=== PATIENT | male | born 1935 | race Caucasian/White ===

== ENCOUNTER 2016-03-29 07:01 | Observation (INO) | payer OTHER, MEDICARE ==
[2016-03-29] VITALS (10 sets, daily range): BP systolic 130–182; BP diastolic 68–168
[~2016-03-29] VITALS: Ht 176.5 cm; Wt 93.6 kg
[~2016-03-29 07:01] MED LIST: ACETAMINOPHEN325 M3 PO; ADULT LOW DOSE81 M1 PO; ASPIR 8181 M1 PO; ASPIRIN81 M1 PO; AVAPRO75 MG PO; Aspirin E.C. PO; Aspirin PO; CALCIUM 600 +1 EAC3 PO; CALCIUM 600 +1 EAC4 PO; CELEXA20 MG PO; CILOSTAZOL100 MG PO; CITALOPRAM HBR PO; CITALOPRAM HBR20 MG PO; CLOPIDOGREL75 MG PO; CYANOCOBAL1000 MCG/2 IM; Cilostazol PO; Cipro PO; Colace PO; DOCUSATE SODIU100 MG PO; DOXYCYCLINE HY100 M3 PO; FISH OIL 1,0001 EAC7 PO; FISH OIL CONC1 EACH PO; FLEXERIL10 MG PO; FLUZONE HI180 MCG/07 IM; FUROSEMIDE20 MG PO; GLIPIZIDE10 M1 PO; GLIPIZIDE10 MG PO; Glucotrol PO; HEPARIN SO5000 UNITS SC; HUMALOG KW200 UNIT/1 SC; HYCODAN SYRUP480 ML PO; HYDROCODON-ACE1 EAC7 PO; IBUPROFEN800 MG PO; LEVAQUIN750 MG PO; LEVEMIR FL100 UNIT/1 SC; LEVEMIR FL100 UNITS/ PO; LEVEMIR FL100 UNITS/ SC; LIPITOR40 MG PO; LIPITOR80 MG PO; LOVASTATIN40 MG PO; Lipitor PO; Lovenox SC; METFORMIN HCL500 MG PO; METOPROLOL SUC100 MG PO; METRONIDAZOLE45 GM TP; MICRO-K10 ME2 PO; MULTI-DAY VITA1 EACH PO; MULTIVITAMIN1 EAC2 PO; NOVOLOG 10100 UNITS/ SC; NOVOLOG MI100 UNIT/4 SC; NOVOLOG MI100 UNIT/M SC; NOVOLOG PE100 UNITS/ SC; NovoLOG, HumaLOG SC; OMEGA-3 1,0001 EACH PO; Omega III EPA + DHA PO; Oscal 500 w/Vitamin PO; PANTOPRAZOLE SO40 MG PO; PIOGLITAZONE HC15 MG PO; PLAVIX75 MG PO; Percocet 5/325,Endoc PO; Pletal PO; ROSADAN45 G1; ROSADAN45 G1 TP; ROSADAN45 GM TP; TOPROL XL100 MG PO; TRETINOIN 0.05%60 GM TP; TRETINOIN TP; TRETINOIN20 G1 TP; TYLENOL REGULA325 MG PO; TYLENOL WITH C1 EACH PO; Vicodin,Norco 5/325 PO; XARELTO20 MG PO; celeXA PO
[2016-03-29 07:39] LABS: HEMATOCRIT 34.5 % (38.0-50.0); MCH 22.8 PG (29.0-34.0); MCHC 30.7 G/DL (30.0-36.0); MCV 74.2 FL (86-99); MEAN PLAT.VOLUME 9.1 uM^3 (9.0-12.4); PLATELET COUNT 269 K/uL (156-360); RBC DIS.WIDTH-CV 16.3 % (11.8-14.6); RBC DIS.WIDTH-SD 42.7 % (39-53); RED BLOOD COUNT 4.65 M/uL (4.00-5.50); WHITE BLOOD COUNT 5.7 K/uL (4.1-10.2)
[2016-03-29 07:51] LABS: PROTHROMBIN TIME 10.5 (9.2-11.2); PTT 26.8 (25-32)
[2016-03-29 07:52] LABS: BASOPHIL COUNT 0.1 K/uL (0-0.1); EOSINOPHIL (%) 5.6 % (0-5); EOSINOPHIL COUNT 0.3 K/uL (0-0.3); IMMATURE GRANULOCYTE (%) 0.4 % (0.0-0.7); IMMATURE GRANULOCYTE COUNT 0.2 K/uL; LYMPHOCYTE COUNT 1.5 K/uL (1.0-2.8); MONOCYTE (%) 8.1 % (3-12); MONOCYTE COUNT 0.5 K/uL (0-0.8); NEUTROPHIL (%) 58.7 % (45-76); NEUTROPHIL COUNT 3.4 K/uL (1.8-6.4)
[2016-03-29 08:06] LABS: ANION GAP 7 MEQ/L (2-14); CHLORIDE 104 MEQ/L (99-109); GFR ESTIMATE (CALCULATED) 52 mL/min/; GLUCOSE 265 mg/dL (70-99); POTASSIUM 4.6 MEQ/L (3.7-5.4); SAMPLE HEMOLYSIS CHECK 0; SAMPLE ICTERIC CHECK 0; SAMPLE LIPEMIA CHECK 0; SODIUM 137 MEQ/L (136-147); UREA NITROGEN (BUN) 21 mg/dL (9-23)
[2016-03-29 08:09] LABS: TROP-I INTERPRETATION NEGATIVE; TROPONIN-I 0.02 ng/mL (0.0-0.30)
[2016-03-29] MEDS ORDERED: HUMALOG KW200 UNIT/1 SC ×3 (09:04→09:05)
[2016-03-29 12:08] LABS: POINT-OF-CARE METER ID UU13113831
[2016-03-29 14:33] LABS: TROP-I INTERPRETATION NEGATIVE; TROPONIN-I < 0.01 ng/mL (0.0-0.30)
[2016-03-29 18:32] LABS: TROP-I INTERPRETATION NEGATIVE; TROPONIN-I 0.02 ng/mL (0.0-0.30)
[2016-03-30 01:19] LABS: TROP-I INTERPRETATION NEGATIVE; TROPONIN-I 0.02 ng/mL (0.0-0.30)
[2016-03-30 02:00] LABS: POINT-OF-CARE METER ID UU13113831
[2016-03-30 08:00] VITALS: BP 142/78
[2016-03-30 08:39] LABS: POINT-OF-CARE METER ID UU13113831
== END 2016-03-30 10:53 | disposition home or self-care (01) ==
LOC: EME 07:01 → EDOF 08:58 → 5WEST 08:58
PROVIDERS: Emergency Medicine; Hospitalist; Internal Medicine
DX: R07.9 Chest pain, unspecified (principal); R94.31 Abnormal electrocardiogram [ECG] [EKG]; E11.22 Type 2 diabetes mellitus with diabetic chronic kidney disease; I12.9 Hypertensive chronic kidney disease with stage 1 through stage 4 chronic kidney disease, or unspecified chronic kidney disease; N18.3 Chronic kidney disease, stage 3 (moderate); Z79.4 Long term (current) use of insulin; I25.10 Atherosclerotic heart disease of native coronary artery without angina pectoris; Z95.1 Presence of aortocoronary bypass graft; Z86.73 Personal history of transient ischemic attack (TIA), and cerebral infarction without residual deficits; Z79.82 Long term (current) use of aspirin; Z86.718 Personal history of other venous thrombosis and embolism; Z85.038 Personal history of other malignant neoplasm of large intestine; Z87.891 Personal history of nicotine dependence; Z82.49 Family history of ischemic heart disease and other diseases of the circulatory system; Z80.0 Family history of malignant neoplasm of digestive organs
CPT/HCPCS: 71010; 80048; 82948; 84484; 85025; 85610; 85730; 93005; 99281; 99285; G0378; J1650; J1815; J2270; J7030

== ENCOUNTER 2017-01-19 07:38 | Observation (INO) | payer OTHER, MEDICARE ==
[~2017-01-19] VITALS: Ht 180.3 cm; Wt 107.2 kg
[2017-01-19 08:38] LABS: BASOPHIL COUNT 0.1 K/uL (0-0.1); EOSINOPHIL (%) 5.9 % (0-5); EOSINOPHIL COUNT 0.4 K/uL (0-0.3); HEMATOCRIT 43.1 % (38.0-50.0); IMMATURE GRANULOCYTE (%) 0.6 % (0.0-0.7); INSTRUMENT ABS NEUTROPHIL CT 3.9 K/uL; LYMPHOCYTE COUNT 1.4 K/uL (1.0-2.8); MCH 30.8 PG (29.0-34.0); MCHC 33.6 G/DL (30.0-36.0); MCV 91.5 FL (86-99); MEAN PLAT.VOLUME 9.5 uM^3 (9.0-12.4); MONOCYTE (%) 9.8 % (3-12); MONOCYTE COUNT 0.6 K/uL (0-0.8); NEUTROPHIL (%) 61.5 % (45-76); NEUTROPHIL COUNT 3.9 K/uL (1.8-6.4); PLATELET COUNT 192 K/uL (156-360); RBC DIS.WIDTH-CV 13.2 % (11.8-14.6); RBC DIS.WIDTH-SD 44.2 % (39-53); RED BLOOD COUNT 4.71 M/uL (4.00-5.50); WHITE BLOOD COUNT 6.3 K/uL (4.1-10.2)
[2017-01-19 08:52] LABS: CHLORIDE 107 mEq/L (99-109); POTASSIUM 4.5 mEq/L (3.7-5.4); SODIUM 141 mEq/L (136-147)
[2017-01-19 08:54] LABS: GLUCOSE 229 mg/dL (70-99)
[2017-01-19 08:55] LABS: ANION GAP 8 MEQ/L (2-14)
[2017-01-19 08:58] LABS: GFR ESTIMATE (CALCULATED) 56 mL/min/
[2017-01-19 08:59] LABS: UREA NITROGEN (BUN) 15 mg/dL (9-23)
[2017-01-19 09:00] LABS: TROP-I INTERPRETATION NEGATIVE; TROPONIN-I < 0.01 ng/mL (0.0-0.30)
[2017-01-19] MEDS ORDERED: LEVEMIR FL100 UNIT/1 SC ×2 (11:16)
[2017-01-19] MEDS ORDERED: HUMALOG KW200 UNIT/1 SC ×2 (11:18)
[2017-01-19] MEDS ORDERED: CITALOPRAM HBR20 MG PO (11:19)
[2017-01-19] MEDS ORDERED: VITAMIN C1000 MG PO (11:20)
[2017-01-19] MEDS ORDERED: FEOSOL325 MG PO (11:20)
[2017-01-19] MEDS ORDERED: TYLENOL EXTRA500 MG PO (11:21)
[2017-01-19 12:24] LABS: TROP-I INTERPRETATION NEGATIVE; TROPONIN-I < 0.01 ng/mL (0.0-0.30)
[2017-01-19 12:50] VITALS: BP 118/53
[2017-01-19 16:17] VITALS: BP 146/79
[2017-01-19 17:41] LABS: TROP-I INTERPRETATION NEGATIVE; TROPONIN-I 0.01 ng/mL (0.0-0.30)
[2017-01-19 18:57] LABS: POINT-OF-CARE METER ID UU14162513
[2017-01-19 19:40] VITALS: BP 148/82
[2017-01-19 21:59] LABS: POINT-OF-CARE METER ID UU14162513
[2017-01-19 23:53] VITALS: BP 118/57
[2017-01-20 03:32] VITALS: BP 119/55
[2017-01-20 07:02] VITALS: BP 158/83
[2017-01-20 07:25] LABS: ADD MIUA? YES; BILIRUBIN NEGATIVE; BLOOD MODERATE; COLOR YELLOW ((YELLOW)); GLUCOSE (STRIP) 50; KETONES NEGATIVE; LEUKOCYTES NEGATIVE; NITRITE NEGATIVE; PROTEIN (STRIP) NEGATIVE; SPECIFIC GRAVITY 1.024 (1.000-1.030); UROBILINOGEN 0.2 MG/DL (0.2-1.0)
[2017-01-20 07:32] LABS: BACTERIA NONE SEEN /HPF; EPITHELIAL CELLS RARE /HPF; MUCUS TRACE /LPF; RED BLOOD CELLS 20-30 /HPF (0-5); WHITE BLOOD CELLS 0-5 /HPF (0-5)
[2017-01-20 08:56] LABS: POINT-OF-CARE METER ID UU14162513
[2017-01-20 11:53] VITALS: BP 189/86
[2017-01-20 12:36] LABS: ANION GAP 5 MEQ/L (2-14); CHLORIDE 102 MEQ/L (99-109); POTASSIUM 4.5 MEQ/L (3.7-5.4); SAMPLE HEMOLYSIS CHECK 0; SAMPLE ICTERIC CHECK 0; SAMPLE LIPEMIA CHECK 0; SODIUM 136 MEQ/L (136-147); TOTAL BILIRUBIN 0.8 MG/DL (0.0-1.0)
[2017-01-20 12:41] LABS: ALKALINE PHOSPHATASE 75 IU/L (3-129); GFR ESTIMATE (CALCULATED) > 59 mL/min/ (58.99-99999); GLUCOSE 181 mg/dL (70-99); LIPASE 29 U/L (1.0-51.0); UREA NITROGEN (BUN) 17 mg/dL (9-23)
[2017-01-20 13:16] LABS: POINT-OF-CARE METER ID UU14162513
== END 2017-01-20 17:57 | disposition home or self-care (01) ==
LOC: EME 07:38 → 5WEST 10:47 → EDOF 10:47 → ENRESERV 10:49 → 5WEST 13:17
PROVIDERS: Hospitalist; Nurse Practitioner Adult Health; Physician Assistant Medical
DX: R07.89 Other chest pain (principal); I25.10 Atherosclerotic heart disease of native coronary artery without angina pectoris; Z95.1 Presence of aortocoronary bypass graft; E11.9 Type 2 diabetes mellitus without complications; Z79.4 Long term (current) use of insulin; I10 Essential (primary) hypertension; E78.5 Hyperlipidemia, unspecified; Z86.73 Personal history of transient ischemic attack (TIA), and cerebral infarction without residual deficits; Z87.891 Personal history of nicotine dependence; Z79.82 Long term (current) use of aspirin; R59.9 Enlarged lymph nodes, unspecified; I70.1 Atherosclerosis of renal artery; Z87.442 Personal history of urinary calculi; Z90.49 Acquired absence of other specified parts of digestive tract; Z85.038 Personal history of other malignant neoplasm of large intestine
CPT/HCPCS: 71010; 71260; 76770; 80048; 80053; 81003; 82948; 83605; 83690; 84484; 85025; 85651; 87040; 93005; 93975; 99281; 99285; G0378; J1650; J1815; J2270; J2405; J7040

== ENCOUNTER 2017-03-01 21:24 | Observation (INO) | payer OTHER, MEDICARE ==
[~2017-03-01] VITALS: Ht 180.3 cm; Wt 107.7 kg
[~2017-03-01 21:24] MED LIST changes: +ASCORBIC ACID500 M3 PO; +FEOSOL325 MG PO; +TYLENOL EXTRA500 MG PO
[2017-03-01 23:00] LABS: HEMATOCRIT 43.7 % (38.0-50.0); HEMOGLOBIN 15.2 G/DL (12.5-16.6); MCH 31.7 PG (29.0-34.0); MCHC 34.8 G/DL (30.0-36.0); MCV 91.2 FL (86-99); PLATELET COUNT 179 K/uL (156-360); RBC DIS.WIDTH-CV 12.7 % (11.8-14.6); RBC DIS.WIDTH-SD 41.6 % (39-53); RED BLOOD COUNT 4.79 M/uL (4.00-5.50); WHITE BLOOD COUNT 11.5 K/uL (4.1-10.2)
[2017-03-01 23:11] LABS: ALBUMIN 3.9 g/dL (3.2-4.8); CHLORIDE 103 mEq/L (99-109); POTASSIUM 4.1 mEq/L (3.7-5.4); SODIUM 136 mEq/L (136-147)
[2017-03-01 23:13] LABS: GLUCOSE 219 mg/dL (70-99)
[2017-03-01 23:14] LABS: TOTAL PROTEIN 6.6 g/dL (6.4-8.3)
[2017-03-01 23:15] LABS: TOTAL BILIRUBIN 0.7 mg/dL (0.0-1.0)
[2017-03-01 23:17] LABS: ALKALINE PHOSPHATASE 78 IU/L (3-129); CREATININE 1.2 mg/dL (0.6-1.3); GFR ESTIMATE (CALCULATED) > 59 mL/min/ (58.99-99999)
[2017-03-01 23:18] LABS: UREA NITROGEN (BUN) 18 mg/dL (9-23)
[2017-03-01 23:19] LABS: AST (GOT) 20 IU/L (2-34)
[2017-03-01 23:20] LABS: ALT (GPT) 37 IU/L (3-49)
[2017-03-01 23:21] LABS: TROP-I INTERPRETATION NEGATIVE; TROPONIN-I < 0.01 ng/mL (0.0-0.30)
[2017-03-02] VITALS (7 sets, daily range): BP systolic 117–168; BP diastolic 59–87
[2017-03-02 00:14] LABS: APPEARANCE CLEAR ((CLEAR)); BILIRUBIN NEGATIVE; BLOOD NEGATIVE; COLOR YELLOW ((YELLOW)); GLUCOSE (STRIP) 150; KETONES NEGATIVE; LEUKOCYTES NEGATIVE; NITRITE NEGATIVE; PROTEIN (STRIP) 30; SPECIFIC GRAVITY 1.018 (1.000-1.030); UCUL ADDED? NO; UROBILINOGEN 0.2 MG/DL (0.2-1.0)
[2017-03-02] MEDS ORDERED: TOUJEO SOL300 UNIT/1 SC (00:28)
[2017-03-03 03:27] VITALS: BP 170/80
[2017-03-03 07:38] LABS: ALBUMIN 2.7 G/DL (3.2-4.8); ALKALINE PHOSPHATASE 56 IU/L (3-129); ALT (GPT) 22 IU/L (3-49); AST (GOT) 12 IU/L (2-34); CHLORIDE 103 MEQ/L (99-109); GFR ESTIMATE (CALCULATED) > 59 mL/min/ (58.99-99999); GLUCOSE 188 mg/dL (70-99); POTASSIUM 4.3 MEQ/L (3.7-5.4); SODIUM 134 MEQ/L (136-147); TOTAL BILIRUBIN 0.8 MG/DL (0.0-1.0); TOTAL PROTEIN 4.4 G/DL (6.4-8.3); UREA NITROGEN (BUN) 16 mg/dL (9-23)
[2017-03-03 07:39] LABS: MCH 31.1 PG (29.0-34.0); MCHC 33.7 G/DL (30.0-36.0); MCV 92.3 FL (86-99); PLATELET COUNT 128 K/uL (156-360); RBC DIS.WIDTH-CV 12.4 % (11.8-14.6); RBC DIS.WIDTH-SD 42.1 % (39-53); WHITE BLOOD COUNT 6.8 K/uL (4.1-10.2)
[2017-03-03 07:53] LABS: HEMOGLOBIN 11.8 G/DL (12.5-16.6); RED BLOOD COUNT 3.79 M/uL (4.00-5.50)
[2017-03-03 08:26] VITALS: BP 167/95
[2017-03-03 11:39] VITALS: BP 198/101
== END 2017-03-03 12:30 | disposition home or self-care (01) ==
LOC: EME 21:24 → EDOF 03-02 00:41 → 3EAST 03-02 00:41 → EDOF 03-02 00:41 → ENRESERV 03-02 00:42 → 3EAST 03-02 02:56
PROVIDERS: Emergency Medicine; Student in an Organized Health Care Education/Training Program
DX: S06.5X9A Traumatic subdural hemorrhage with loss of consciousness of unspecified duration, initial encounter (principal); W18.30XA Fall on same level, unspecified, initial encounter; W22.8XXA Striking against or struck by other objects, initial encounter; S50.02XA Contusion of left elbow, initial encounter; I69.398 Other sequelae of cerebral infarction; R26.89 Other abnormalities of gait and mobility; I10 Essential (primary) hypertension; E66.9 Obesity, unspecified; E11.9 Type 2 diabetes mellitus without complications; I25.10 Atherosclerotic heart disease of native coronary artery without angina pectoris; Z87.891 Personal history of nicotine dependence; E78.5 Hyperlipidemia, unspecified; Z87.442 Personal history of urinary calculi; Z85.038 Personal history of other malignant neoplasm of large intestine; Z90.49 Acquired absence of other specified parts of digestive tract; Z79.4 Long term (current) use of insulin; Z79.82 Long term (current) use of aspirin
CPT/HCPCS: 70450; 73080; 80053; 81003; 82948; 84484; 85027; 85610; 93005; 99281; 99285; G0378; G8978 GP CJ; G8979 GP CH; G8980 CJ; J1815; J2270; J2405; J7120

== ENCOUNTER 2017-03-08 01:53 | Emergency (ER) | payer OTHER, MEDICARE ==
[~2017-03-08] VITALS: Ht 180.3 cm; Wt 100.7 kg
[~2017-03-08 01:53] MED LIST changes: +TOUJEO SOL300 UNIT/1 SC
[2017-03-08 01:55] VITALS: BP 187/108
[2017-03-08 02:27] LABS: HEMATOCRIT 42.7 % (38.0-50.0); MCHC 35.1 G/DL (30.0-36.0); RBC DIS.WIDTH-CV 12.7 % (11.8-14.6); RBC DIS.WIDTH-SD 41.7 % (39-53); WHITE BLOOD COUNT 9.1 K/uL (4.1-10.2)
[2017-03-08 02:28] LABS: PLATELET COUNT 178 K/uL (156-360); RED BLOOD COUNT 4.69 M/uL (4.00-5.50)
[2017-03-08 02:29] LABS: ALBUMIN 3.9 g/dL (3.2-4.8); CHLORIDE 103 mEq/L (99-109); POTASSIUM 3.7 mEq/L (3.7-5.4); SODIUM 137 mEq/L (136-147)
[2017-03-08 02:31] LABS: GLUCOSE 142 mg/dL (70-99)
[2017-03-08 02:32] LABS: TOTAL PROTEIN 6.7 g/dL (6.4-8.3)
[2017-03-08 02:33] LABS: TOTAL BILIRUBIN 0.7 mg/dL (0.0-1.0)
[2017-03-08 02:35] LABS: ALKALINE PHOSPHATASE 90 IU/L (3-129); CREATININE 1.3 mg/dL (0.6-1.3); GFR ESTIMATE (CALCULATED) 56 mL/min/ (58.99-99999)
[2017-03-08 02:36] LABS: UREA NITROGEN (BUN) 16 mg/dL (9-23)
[2017-03-08 02:37] LABS: AST (GOT) 17 IU/L (2-34)
[2017-03-08 02:38] LABS: ALT (GPT) 36 IU/L (3-49)
[2017-03-09] MEDS ORDERED: REGLAN10 MG PO (16:54)
[2017-03-09] MEDS ORDERED: FIORICET,ESG1 TABLET PO (16:57)
== END 2017-03-08 03:52 | disposition left against medical advice (07) ==
LOC: EME 01:53
DX: R51 Headache (principal); Z53.21 Procedure and treatment not carried out due to patient leaving prior to being seen by health care provider
CPT/HCPCS: 80053; 81003; 85027

== ENCOUNTER 2017-03-09 10:50 | Emergency (ER) | payer OTHER, MEDICARE ==
[~2017-03-09] VITALS: Ht 175.3 cm; Wt 104.5 kg
[2017-03-09 11:33] LABS: BASOPHIL (%) 0.3 % (0-1); EOSINOPHIL (%) 0.3 % (0-5); HEMATOCRIT 44.2 % (38.0-50.0); HEMOGLOBIN 15.2 G/DL (12.5-16.6); IMMATURE GRANULOCYTE (%) 0.3 % (0.0-0.7); LYMPHOCYTE (%) 12.6 % (15-42); LYMPHOCYTE COUNT 1.1 K/uL (1.0-2.8); MCH 31.5 PG (29.0-34.0); MCHC 34.4 G/DL (30.0-36.0); MCV 91.7 FL (86-99); MONOCYTE (%) 6.3 % (3-12); MONOCYTE COUNT 0.5 K/uL (0-0.8); NEUTROPHIL (%) 80.2 % (45-76); NEUTROPHIL COUNT 6.9 K/uL (1.8-6.4); PLATELET COUNT 188 K/uL (156-360); RBC DIS.WIDTH-CV 12.7 % (11.8-14.6); RBC DIS.WIDTH-SD 42.2 % (39-53); RED BLOOD COUNT 4.82 M/uL (4.00-5.50); WHITE BLOOD COUNT 8.6 K/uL (4.1-10.2)
[2017-03-09 11:41] LABS: CHLORIDE 98 mEq/L (99-109); SODIUM 134 mEq/L (136-147)
[2017-03-09 11:42] LABS: POTASSIUM 4.6 mEq/L (3.7-5.4)
[2017-03-09 11:44] LABS: GLUCOSE 157 mg/dL (70-99)
[2017-03-09 11:47] LABS: ALKALINE PHOSPHATASE 92 IU/L (3-129); CREATININE 1.2 mg/dL (0.6-1.3); GFR ESTIMATE (CALCULATED) > 59 mL/min/ (58.99-99999); TOTAL BILIRUBIN 1.1 mg/dL (0.0-1.0)
[2017-03-09 11:48] LABS: UREA NITROGEN (BUN) 20 mg/dL (9-23)
[2017-03-09 11:49] LABS: AST (GOT) 18 IU/L (2-34)
[2017-03-09 11:50] LABS: ALT (GPT) 33 IU/L (3-49)
[2017-03-09 16:16] LABS: APPEARANCE CLEAR ((CLEAR)); BILIRUBIN NEGATIVE; BLOOD SMALL; COLOR STRAW ((YELLOW)); GLUCOSE (STRIP) >=500; KETONES 20; LEUKOCYTES NEGATIVE; NITRITE NEGATIVE; PROTEIN (STRIP) 30; SPECIFIC GRAVITY 1.024 (1.000-1.030); UROBILINOGEN 0.2 MG/DL (0.2-1.0)
[2017-03-09 16:31] LABS: BACTERIA NONE SEEN /HPF; EPITHELIAL CELLS NONE SEEN /HPF; MUCUS TRACE /LPF; UCUL ADDED? NO; WHITE BLOOD CELLS 0-5 /HPF (0-5)
[2017-03-09] MEDS ORDERED: REGLAN10 MG PO (16:54)
[2017-03-09] MEDS ORDERED: FIORICET,ESG1 TABLET PO (16:57)
[2017-03-09 17:14] VITALS: BP 181/95
== END 2017-03-09 17:17 | disposition home or self-care (01) ==
LOC: EME 10:50
PROVIDERS: Emergency Medicine
DX: S09.90XD Unspecified injury of head, subsequent encounter (principal); W18.30XD Fall on same level, unspecified, subsequent encounter; I10 Essential (primary) hypertension; K76.0 Fatty (change of) liver, not elsewhere classified; N28.1 Cyst of kidney, acquired; E11.9 Type 2 diabetes mellitus without complications; E78.5 Hyperlipidemia, unspecified; K21.9 Gastro-esophageal reflux disease without esophagitis; I25.10 Atherosclerotic heart disease of native coronary artery without angina pectoris; F32.9 Major depressive disorder, single episode, unspecified; F41.9 Anxiety disorder, unspecified; Z85.038 Personal history of other malignant neoplasm of large intestine; Z90.49 Acquired absence of other specified parts of digestive tract; Z87.442 Personal history of urinary calculi; Z86.73 Personal history of transient ischemic attack (TIA), and cerebral infarction without residual deficits; Z87.891 Personal history of nicotine dependence; Z95.1 Presence of aortocoronary bypass graft; Z79.4 Long term (current) use of insulin
CPT/HCPCS: 74177; 80053; 81003; 85025; 93005; 99281; 99285; J0360; J0780; J3010; J7030

== ENCOUNTER 2017-03-12 20:54 | Observation (INO) | payer OTHER, MEDICARE ==
[~2017-03-12] VITALS: Ht 176.5 cm; Wt 100.9 kg
[~2017-03-12 20:54] MED LIST changes: +FIORICET,ESG1 TABLET PO; +REGLAN10 MG PO
[2017-03-12 21:41] LABS: BASOPHIL (%) 0.4 % (0-1); BASOPHIL COUNT 0.1 K/uL (0-0.1); EOSINOPHIL (%) 0.3 % (0-5); HEMATOCRIT 47.3 % (38.0-50.0); HEMOGLOBIN 16.7 G/DL (12.5-16.6); IMMATURE GRANULOCYTE (%) 0.5 % (0.0-0.7); LYMPHOCYTE (%) 6.9 % (15-42); LYMPHOCYTE COUNT 0.8 K/uL (1.0-2.8); MCH 32.1 PG (29.0-34.0); MCHC 35.3 G/DL (30.0-36.0); MCV 90.8 FL (86-99); MONOCYTE (%) 10.2 % (3-12); MONOCYTE COUNT 1.2 K/uL (0-0.8); NEUTROPHIL (%) 81.7 % (45-76); NEUTROPHIL COUNT 9.3 K/uL (1.8-6.4); PLATELET COUNT 216 K/uL (156-360); RBC DIS.WIDTH-CV 12.4 % (11.8-14.6); RBC DIS.WIDTH-SD 40.7 % (39-53); RED BLOOD COUNT 5.21 M/uL (4.00-5.50); WHITE BLOOD COUNT 11.5 K/uL (4.1-10.2)
[2017-03-12 21:51] LABS: CHLORIDE 98 mEq/L (99-109); SODIUM 135 mEq/L (136-147)
[2017-03-12 21:53] LABS: GLUCOSE 134 mg/dL (70-99)
[2017-03-12 21:57] LABS: CREATININE 1.4 mg/dL (0.6-1.3); GFR ESTIMATE (CALCULATED) 51 mL/min/ (58.99-99999)
[2017-03-12 21:58] LABS: UREA NITROGEN (BUN) 28 mg/dL (9-23)
[2017-03-12 21:59] LABS: POTASSIUM 3.2 mEq/L (3.7-5.4)
[2017-03-12 22:04] LABS: TROP-I INTERPRETATION NEGATIVE; TROPONIN-I 0.02 ng/mL (0.0-0.30)
[2017-03-12 23:05] LABS: APPEARANCE CLEAR ((CLEAR)); BILIRUBIN NEGATIVE; BLOOD MODERATE; COLOR YELLOW ((YELLOW)); GLUCOSE (STRIP) >=500; KETONES NEGATIVE; LEUKOCYTES NEGATIVE; NITRITE NEGATIVE; PROTEIN (STRIP) 100; SPECIFIC GRAVITY 1.015 (1.000-1.030); UROBILINOGEN 0.2 MG/DL (0.2-1.0)
[2017-03-12 23:19] LABS: BACTERIA NONE SEEN /HPF; EPITHELIAL CELLS RARE /HPF; HYALINE CASTS 0-5 /LPF; MUCUS NONE SEEN /LPF; RED BLOOD CELLS TNTC /HPF (0-5); UCUL ADDED? YES
[2017-03-13] MEDS ORDERED: ACETAMINOPHEN-1 EAC1 PO (01:29)
[2017-03-13] MEDS ORDERED: ATORVASTATIN CA40 MG PO (01:31)
[2017-03-13] MEDS ORDERED: CLOPIDOGREL75 MG PO (01:32)
[2017-03-13 04:02] LABS: TROP-I INTERPRETATION NEGATIVE; TROPONIN-I 0.04 ng/mL (0.0-0.30)
[2017-03-13 04:28] LABS: HDL CHOLESTEROL 29 MG/DL (Desirable>=40); LDL CHOLESTEROL 94 mg/dL (Desirable<100); NON-HDL CHOLESTEROL 112 mg/dL (Desirable<160); TOTAL CHOLESTEROL 141 mg/dL (Desirable<200); TRIGLYCERIDES 92 MG/DL (Normal: <150)
[2017-03-13 07:20] VITALS: BP 124/65
[2017-03-13 12:00] VITALS: BP 135/61
[2017-03-13 13:17] LABS: HEMOGLOBIN A1c (GLYCOHEMOGLOB) 7.4 % (Below 5.7)
[2017-03-13 15:40] VITALS: BP 132/77
[2017-03-13 17:41] LABS: BASOPHIL (%) 0.6 % (0-1); BASOPHIL COUNT 0.1 K/uL (0-0.1); EOSINOPHIL (%) 1.3 % (0-5); EOSINOPHIL COUNT 0.1 K/uL (0-0.3); HEMATOCRIT 43.9 % (38.0-50.0); HEMOGLOBIN 15.4 G/DL (12.5-16.6); IMMATURE GRANULOCYTE (%) 0.6 % (0.0-0.7); LYMPHOCYTE (%) 19.7 % (15-42); LYMPHOCYTE COUNT 1.7 K/uL (1.0-2.8); MCH 31.6 PG (29.0-34.0); MCHC 35.1 G/DL (30.0-36.0); MCV 90.1 FL (86-99); MONOCYTE (%) 9.9 % (3-12); MONOCYTE COUNT 0.8 K/uL (0-0.8); NEUTROPHIL (%) 67.9 % (45-76); NEUTROPHIL COUNT 5.7 K/uL (1.8-6.4); PLATELET COUNT 210 K/uL (156-360); RBC DIS.WIDTH-CV 12.6 % (11.8-14.6); RBC DIS.WIDTH-SD 41.6 % (39-53); RED BLOOD COUNT 4.87 M/uL (4.00-5.50); WHITE BLOOD COUNT 8.4 K/uL (4.1-10.2)
[2017-03-13 17:56] LABS: CHLORIDE 98 MEQ/L (99-109); CREATININE 1.2 MG/DL (0.6-1.3); GFR ESTIMATE (CALCULATED) > 59 mL/min/ (58.99-99999); POTASSIUM 3.5 MEQ/L (3.7-5.4); SODIUM 132 MEQ/L (136-147); UREA NITROGEN (BUN) 26 mg/dL (9-23)
[2017-03-13 18:00] LABS: GLUCOSE 230 mg/dL (70-99)
[2017-03-13 19:32] VITALS: BP 183/88
[2017-03-13 23:40] VITALS: BP 156/80
[2017-03-14 04:46] VITALS: BP 165/76
[2017-03-14 06:36] LABS: BASOPHIL COUNT 0.1 K/uL (0-0.1); EOSINOPHIL (%) 3.9 % (0-5); EOSINOPHIL COUNT 0.3 K/uL (0-0.3); HEMATOCRIT 41.2 % (38.0-50.0); HEMOGLOBIN 14.2 G/DL (12.5-16.6); IMMATURE GRANULOCYTE (%) 0.4 % (0.0-0.7); LYMPHOCYTE (%) 21.9 % (15-42); LYMPHOCYTE COUNT 1.5 K/uL (1.0-2.8); MCH 30.9 PG (29.0-34.0); MCHC 34.5 G/DL (30.0-36.0); MCV 89.8 FL (86-99); MONOCYTE (%) 10.6 % (3-12); MONOCYTE COUNT 0.7 K/uL (0-0.8); NEUTROPHIL (%) 62.2 % (45-76); NEUTROPHIL COUNT 4.4 K/uL (1.8-6.4); PLATELET COUNT 199 K/uL (156-360); RBC DIS.WIDTH-CV 12.3 % (11.8-14.6); RBC DIS.WIDTH-SD 40.6 % (39-53); RED BLOOD COUNT 4.59 M/uL (4.00-5.50)
[2017-03-14 06:52] LABS: CHLORIDE 98 MEQ/L (99-109); CREATININE 1.3 MG/DL (0.6-1.3); GFR ESTIMATE (CALCULATED) 56 mL/min/ (58.99-99999); GLUCOSE 134 mg/dL (70-99); POTASSIUM 3.6 MEQ/L (3.7-5.4); SODIUM 135 MEQ/L (136-147); UREA NITROGEN (BUN) 22 mg/dL (9-23)
[2017-03-14 07:33] VITALS: BP 164/78
[2017-03-14 11:38] VITALS: BP 149/70
[2017-03-14 15:43] VITALS: BP 172/76
[2017-03-14] MEDS ORDERED: HUMALOG100 UNIT/2 SC (17:44)
[2017-03-14] MEDS ORDERED: TOUJEO SOL300 UNIT/1 SC (17:47)
[2017-03-14 19:59] VITALS: BP 136/69
== END 2017-03-14 20:08 | disposition home health service (06) ==
LOC: EME 20:54 → 5SOUTH 03-13 02:09 → EDOF 03-13 02:09 → ENRESERV 03-13 02:11 → 5SOUTH 03-13 07:10
PROVIDERS: Emergency Medicine; Hospitalist
DX: E11.649 Type 2 diabetes mellitus with hypoglycemia without coma (principal); I16.0 Hypertensive urgency; I10 Essential (primary) hypertension; I25.10 Atherosclerotic heart disease of native coronary artery without angina pectoris; S06.5X9D Traumatic subdural hemorrhage with loss of consciousness of unspecified duration, subsequent encounter; Z95.1 Presence of aortocoronary bypass graft; E78.5 Hyperlipidemia, unspecified; I27.20 Pulmonary hypertension, unspecified; Z79.4 Long term (current) use of insulin; D72.829 Elevated white blood cell count, unspecified; Z66 Do not resuscitate; Z86.73 Personal history of transient ischemic attack (TIA), and cerebral infarction without residual deficits; Z85.038 Personal history of other malignant neoplasm of large intestine; Z79.02 Long term (current) use of antithrombotics/antiplatelets; Z87.891 Personal history of nicotine dependence; Z91.81 History of falling
CPT/HCPCS: 70450; 70551; 71045; 80048; 80061; 81003; 82948; 83036; 84484; 85025; 87086; 93005; 93306; 93880; 97530 GP; 99281; 99285; G0378; G8978 GP CK; G8979 CJ; G8980 CJ; G8987 CK; G8988 GO CJ; G8989 GO CK; J0360; J7042

== ENCOUNTER 2017-04-21 10:46 | Inpatient (IN) | payer OTHER, MEDICARE ==
[2017-04-21] VITALS (19 sets, daily range): BP systolic 113–178; BP diastolic 65–102
[~2017-04-21] VITALS: Ht 182.9 cm; Wt 101.4 kg
[~2017-04-21 10:46] MED LIST changes: +ACETAMINOPHEN-1 EAC1 PO; +ATORVASTATIN CA40 MG PO; +HUMALOG100 UNIT/2 SC
[2017-04-21 11:05] LABS: BASOPHIL (%) 0.8 % (0-1); BASOPHIL COUNT 0.1 K/uL (0-0.1); EOSINOPHIL (%) 4.8 % (0-5); EOSINOPHIL COUNT 0.4 K/uL (0-0.3); HEMATOCRIT 45.3 % (38.0-50.0); IMMATURE GRANULOCYTE (%) 0.5 % (0.0-0.7); LYMPHOCYTE (%) 27.3 % (15-42); MCH 31.6 PG (29.0-34.0); MCHC 35.3 G/DL (30.0-36.0); MCV 89.5 FL (86-99); MONOCYTE (%) 7.1 % (3-12); MONOCYTE COUNT 0.5 K/uL (0-0.8); NEUTROPHIL (%) 59.5 % (45-76); NEUTROPHIL COUNT 4.4 K/uL (1.8-6.4); PLATELET COUNT 152 K/uL (156-360); RED BLOOD COUNT 5.06 M/uL (4.00-5.50); WHITE BLOOD COUNT 7.4 K/uL (4.1-10.2)
[2017-04-21 11:14] LABS: AMYLASE 19 IU/L (1-118); CHLORIDE 105 mEq/L (99-109); POTASSIUM 4.5 mEq/L (3.7-5.4); SODIUM 138 mEq/L (136-147)
[2017-04-21 11:16] LABS: GLUCOSE 230 mg/dL (70-99)
[2017-04-21 11:19] LABS: SERUM ETHYL ALCOHOL < 10 mg/dL
[2017-04-21 11:20] LABS: CREATININE 1.4 mg/dL (0.6-1.3); GFR ESTIMATE (CALCULATED) 51 mL/min/ (58.99-99999)
[2017-04-21 11:21] LABS: UREA NITROGEN (BUN) 17 mg/dL (9-23)
[2017-04-21 11:23] LABS: LIPASE 16 U/L (1.0-51.0)
[2017-04-21 11:56] LABS: APPEARANCE CLEAR ((CLEAR)); BILIRUBIN NEGATIVE; BLOOD SMALL; COLOR COLORLESS ((YELLOW)); GLUCOSE (STRIP) >=500; KETONES NEGATIVE; LEUKOCYTES NEGATIVE; NITRITE NEGATIVE; PROTEIN (STRIP) NEGATIVE; SPECIFIC GRAVITY 1.016 (1.000-1.030); UROBILINOGEN 0.2 MG/DL (0.2-1.0)
[2017-04-21 11:58] LABS: BACTERIA NONE SEEN /HPF; EPITHELIAL CELLS NONE SEEN /HPF; MUCUS NONE SEEN /LPF; RED BLOOD CELLS 0-5 /HPF (0-5); UCUL ADDED? NO; WHITE BLOOD CELLS 0-5 /HPF (0-5)
[2017-04-21 12:06] LABS: AMPHETAMINE NEGATIVE (500 ng/mL); BARBITURATES NEGATIVE (200 ng/mL); BENZODIAZEPINES NEGATIVE (150 ng/mL); BUPRENORPHINE NEGATIVE (10 ng/mL); COCAINE NEGATIVE (150 ng/mL); METHADONE NEGATIVE (200 ng/mL); METHAMPHETAMINE NEGATIVE (500 ng/mL); OPIATES (MORPHINE) NEGATIVE (100 ng/mL); OXYCODONE NEGATIVE (100 ng/mL); PHENCYCLIDINE NEGATIVE (25 ng/mL); PROPOXYPHENE NEGATIVE (300 ng/mL); THC CANNABINOIDS NEGATIVE (50 ng/mL); TRICYCLIC ANTIDEPRESSANTS NEGATIVE (300 ng/mL)
[2017-04-21 17:20] LABS: BASOPHIL (%) 0.4 % (0-1); EOSINOPHIL (%) 0.1 % (0-5); HEMATOCRIT 43.4 % (38.0-50.0); HEMOGLOBIN 15.2 G/DL (12.5-16.6); IMMATURE GRANULOCYTE (%) 0.5 % (0.0-0.7); LYMPHOCYTE (%) 6.2 % (15-42); LYMPHOCYTE COUNT 0.7 K/uL (1.0-2.8); MCH 31.7 PG (29.0-34.0); MCV 90.6 FL (86-99); MONOCYTE COUNT 0.5 K/uL (0-0.8); NEUTROPHIL (%) 87.8 % (45-76); NEUTROPHIL COUNT 9.4 K/uL (1.8-6.4); PLATELET COUNT 143 K/uL (156-360); RBC DIS.WIDTH-CV 12.1 % (11.8-14.6); RBC DIS.WIDTH-SD 39.8 % (39-53); RED BLOOD COUNT 4.79 M/uL (4.00-5.50); WHITE BLOOD COUNT 10.8 K/uL (4.1-10.2)
[2017-04-21 18:14] LABS: CHLORIDE 104 MEQ/L (99-109); POTASSIUM 4.6 MEQ/L (3.7-5.4); SODIUM 138 MEQ/L (136-147)
[2017-04-21 18:20] LABS: CREATININE 1.2 MG/DL (0.6-1.3); GFR ESTIMATE (CALCULATED) > 59 mL/min/ (58.99-99999); GLUCOSE 254 mg/dL (70-99); UREA NITROGEN (BUN) 15 mg/dL (9-23)
[2017-04-21] MEDS ORDERED: TOUJEO SOL300 UNIT/1 SC (18:26)
[2017-04-21] MEDS ORDERED: LO-DOSE ASPIRIN81 M2 PO (18:27)
[2017-04-21] MEDS ORDERED: VITAMIN B12 100MCG PO (18:30)
[2017-04-22] VITALS (22 sets, daily range): BP systolic 110–161; BP diastolic 60–79
[2017-04-22 05:47] LABS: BASOPHIL (%) 0.5 % (0-1); EOSINOPHIL (%) 1.1 % (0-5); EOSINOPHIL COUNT 0.1 K/uL (0-0.3); HEMATOCRIT 37.8 % (38.0-50.0); HEMOGLOBIN 12.9 G/DL (12.5-16.6); IMMATURE GRANULOCYTE (%) 0.4 % (0.0-0.7); LYMPHOCYTE (%) 15.8 % (15-42); LYMPHOCYTE COUNT 1.3 K/uL (1.0-2.8); MCHC 34.1 G/DL (30.0-36.0); MCV 90.9 FL (86-99); MONOCYTE COUNT 0.7 K/uL (0-0.8); NEUTROPHIL (%) 73.2 % (45-76); NEUTROPHIL COUNT 5.9 K/uL (1.8-6.4); PLATELET COUNT 134 K/uL (156-360); RBC DIS.WIDTH-CV 12.1 % (11.8-14.6); RED BLOOD COUNT 4.16 M/uL (4.00-5.50)
[2017-04-22 06:05] LABS: CHLORIDE 109 MEQ/L (99-109); CREATININE 1.2 MG/DL (0.6-1.3); GFR ESTIMATE (CALCULATED) > 59 mL/min/ (58.99-99999); GLUCOSE 200 mg/dL (70-99); MAGNESIUM 1.6 mg/dl (1.3-2.7); POTASSIUM 3.9 MEQ/L (3.7-5.4); SODIUM 141 MEQ/L (136-147); UREA NITROGEN (BUN) 16 mg/dL (9-23)
[2017-04-22 14:17] LABS: HEMOGLOBIN A1c (GLYCOHEMOGLOB) 9.4 % (Below 5.7)
[2017-04-23] VITALS (25 sets, daily range): BP systolic 133–210; BP diastolic 54–118
[2017-04-23 05:26] LABS: BASOPHIL (%) 0.8 % (0-1); BASOPHIL COUNT 0.1 K/uL (0-0.1); EOSINOPHIL (%) 4.3 % (0-5); EOSINOPHIL COUNT 0.3 K/uL (0-0.3); HEMATOCRIT 37.6 % (38.0-50.0); HEMOGLOBIN 12.8 G/DL (12.5-16.6); IMMATURE GRANULOCYTE (%) 0.3 % (0.0-0.7); LYMPHOCYTE (%) 19.4 % (15-42); LYMPHOCYTE COUNT 1.5 K/uL (1.0-2.8); MCH 30.8 PG (29.0-34.0); MCV 90.6 FL (86-99); MONOCYTE (%) 10.1 % (3-12); MONOCYTE COUNT 0.8 K/uL (0-0.8); NEUTROPHIL (%) 65.1 % (45-76); NEUTROPHIL COUNT 4.9 K/uL (1.8-6.4); PLATELET COUNT 126 K/uL (156-360); RBC DIS.WIDTH-CV 11.9 % (11.8-14.6); RBC DIS.WIDTH-SD 39.8 % (39-53); RED BLOOD COUNT 4.15 M/uL (4.00-5.50); WHITE BLOOD COUNT 7.5 K/uL (4.1-10.2)
[2017-04-23 06:09] LABS: CHLORIDE 102 MEQ/L (99-109); CREATININE 1.2 MG/DL (0.6-1.3); GFR ESTIMATE (CALCULATED) > 59 mL/min/ (58.99-99999); GLUCOSE 221 mg/dL (70-99); MAGNESIUM 1.6 mg/dl (1.3-2.7); PHOSPHORUS 2.8 mg/dL (2.5-4.9); POTASSIUM 3.7 MEQ/L (3.7-5.4); SODIUM 136 MEQ/L (136-147); UREA NITROGEN (BUN) 16 mg/dL (9-23)
[2017-04-24] VITALS (12 sets, daily range): BP systolic 111–172; BP diastolic 68–131
[2017-04-24 04:53] LABS: BASOPHIL (%) 0.5 % (0-1); EOSINOPHIL (%) 3.3 % (0-5); EOSINOPHIL COUNT 0.3 K/uL (0-0.3); HEMOGLOBIN 14.6 G/DL (12.5-16.6); IMMATURE GRANULOCYTE (%) 0.4 % (0.0-0.7); LYMPHOCYTE (%) 16.5 % (15-42); LYMPHOCYTE COUNT 1.3 K/uL (1.0-2.8); MCH 31.8 PG (29.0-34.0); MCHC 35.6 G/DL (30.0-36.0); MCV 89.3 FL (86-99); MONOCYTE (%) 9.5 % (3-12); MONOCYTE COUNT 0.8 K/uL (0-0.8); NEUTROPHIL (%) 69.8 % (45-76); NEUTROPHIL COUNT 5.5 K/uL (1.8-6.4); PLATELET COUNT 130 K/uL (156-360); RBC DIS.WIDTH-CV 11.8 % (11.8-14.6); RBC DIS.WIDTH-SD 38.1 % (39-53); RED BLOOD COUNT 4.59 M/uL (4.00-5.50); WHITE BLOOD COUNT 7.9 K/uL (4.1-10.2)
[2017-04-24 06:28] LABS: CHLORIDE 100 MEQ/L (99-109); CREATININE 1.2 MG/DL (0.6-1.3); GFR ESTIMATE (CALCULATED) > 59 mL/min/ (58.99-99999); GLUCOSE 278 mg/dL (70-99); MAGNESIUM 1.8 mg/dl (1.3-2.7); PHOSPHORUS 3.3 mg/dL (2.5-4.9); POTASSIUM 3.7 MEQ/L (3.7-5.4); SODIUM 138 MEQ/L (136-147); UREA NITROGEN (BUN) 17 mg/dL (9-23)
[2017-04-25 00:01] VITALS: BP 127/58
[2017-04-25 04:26] VITALS: BP 158/67
[2017-04-25 05:45] LABS: BASOPHIL (%) 0.8 % (0-1); BASOPHIL COUNT 0.1 K/uL (0-0.1); EOSINOPHIL (%) 6.2 % (0-5); EOSINOPHIL COUNT 0.4 K/uL (0-0.3); HEMATOCRIT 37.7 % (38.0-50.0); HEMOGLOBIN 13.1 G/DL (12.5-16.6); IMMATURE GRANULOCYTE (%) 0.5 % (0.0-0.7); LYMPHOCYTE (%) 21.3 % (15-42); LYMPHOCYTE COUNT 1.4 K/uL (1.0-2.8); MCH 31.2 PG (29.0-34.0); MCHC 34.7 G/DL (30.0-36.0); MCV 89.8 FL (86-99); MONOCYTE (%) 10.9 % (3-12); MONOCYTE COUNT 0.7 K/uL (0-0.8); NEUTROPHIL (%) 60.3 % (45-76); NEUTROPHIL COUNT 3.9 K/uL (1.8-6.4); PLATELET COUNT 142 K/uL (156-360); RBC DIS.WIDTH-CV 11.9 % (11.8-14.6); RBC DIS.WIDTH-SD 38.8 % (39-53); WHITE BLOOD COUNT 6.4 K/uL (4.1-10.2)
[2017-04-25 06:11] LABS: CHLORIDE 100 MEQ/L (99-109); CREATININE 1.3 MG/DL (0.6-1.3); GFR ESTIMATE (CALCULATED) 56 mL/min/ (58.99-99999); GLUCOSE 273 mg/dL (70-99); MAGNESIUM 1.8 mg/dl (1.3-2.7); PHOSPHORUS 3.1 mg/dL (2.5-4.9); POTASSIUM 3.5 MEQ/L (3.7-5.4); SODIUM 137 MEQ/L (136-147); UREA NITROGEN (BUN) 19 mg/dL (9-23)
[2017-04-25 08:55] VITALS: BP 124/64
[2017-04-25 12:12] VITALS: BP 109/57
[2017-04-25 16:44] VITALS: BP 137/65
[2017-04-25 23:23] VITALS: BP 163/86
[2017-04-26 05:16] LABS: BASOPHIL (%) 0.6 % (0-1); EOSINOPHIL (%) 6.7 % (0-5); EOSINOPHIL COUNT 0.4 K/uL (0-0.3); HEMATOCRIT 38.6 % (38.0-50.0); HEMOGLOBIN 13.4 G/DL (12.5-16.6); IMMATURE GRANULOCYTE (%) 0.5 % (0.0-0.7); LYMPHOCYTE (%) 22.7 % (15-42); LYMPHOCYTE COUNT 1.4 K/uL (1.0-2.8); MCH 31.8 PG (29.0-34.0); MCHC 34.7 G/DL (30.0-36.0); MCV 91.7 FL (86-99); MONOCYTE COUNT 0.7 K/uL (0-0.8); NEUTROPHIL (%) 58.5 % (45-76); NEUTROPHIL COUNT 3.7 K/uL (1.8-6.4); PLATELET COUNT 157 K/uL (156-360); RBC DIS.WIDTH-SD 39.8 % (39-53); RED BLOOD COUNT 4.21 M/uL (4.00-5.50); WHITE BLOOD COUNT 6.3 K/uL (4.1-10.2)
[2017-04-26 05:28] LABS: CHLORIDE 100 MEQ/L (99-109); CREATININE 1.3 MG/DL (0.6-1.3); GFR ESTIMATE (CALCULATED) 56 mL/min/ (58.99-99999); GLUCOSE 293 mg/dL (70-99); MAGNESIUM 1.8 mg/dl (1.3-2.7); PHOSPHORUS 3.1 mg/dL (2.5-4.9); POTASSIUM 3.9 MEQ/L (3.7-5.4); SODIUM 138 MEQ/L (136-147); UREA NITROGEN (BUN) 19 mg/dL (9-23)
[2017-04-26 08:56] VITALS: BP 142/72
[2017-04-26] MEDS ORDERED: LABETALOL HCL100 MG PO (11:09)
[2017-04-26] MEDS ORDERED: BISACODYL5 MG PO (11:10)
== END 2017-04-26 14:07 | DRG 26 ==
LOC: TRA 10:46 → ENRESERV 14:09 → 2SOUTH 14:11 → 4WEST 14:11 → ENRESERV 14:58 → 4WEST 15:27 → ENRESERV 04-24 17:05 → 4WEST 04-24 17:38 → 3EAST 04-24 18:19
PROVIDERS: Emergency Medicine; Internal Medicine; Neurological Surgery; Surgery
DX: S06.5X0A Traumatic subdural hemorrhage without loss of consciousness, initial encounter (principal); W18.30XA Fall on same level, unspecified, initial encounter; Y92.009 Unspecified place in unspecified non-institutional (private) residence as the place of occurrence of the external cause; I16.1 Hypertensive emergency; I10 Essential (primary) hypertension; E11.65 Type 2 diabetes mellitus with hyperglycemia; R33.9 Retention of urine, unspecified; I69.352 Hemiplegia and hemiparesis following cerebral infarction affecting left dominant side; I69.398 Other sequelae of cerebral infarction; R47.01 Aphasia; R47.1 Dysarthria and anarthria; R26.81 Unsteadiness on feet; R32 Unspecified urinary incontinence; Z66 Do not resuscitate; K21.9 Gastro-esophageal reflux disease without esophagitis; E78.5 Hyperlipidemia, unspecified; G31.9 Degenerative disease of nervous system, unspecified; I25.10 Atherosclerotic heart disease of native coronary artery without angina pectoris; E66.9 Obesity, unspecified; Z68.30 Body mass index [BMI] 30.0-30.9, adult; J43.9 Emphysema, unspecified; R40.2412 Glasgow coma scale score 13-15, at arrival to emergency department; F41.9 Anxiety disorder, unspecified; Z91.81 History of falling; Z87.442 Personal history of urinary calculi; Z85.038 Personal history of other malignant neoplasm of large intestine; Z87.891 Personal history of nicotine dependence; Z95.1 Presence of aortocoronary bypass graft; Z79.02 Long term (current) use of antithrombotics/antiplatelets
CPT/HCPCS: 70450; 71260; 72125; 72129; 72132; 74177; 80047; 80048; 80048 91; 81003; 82150; 82948; 83036; 83605; 83690; 83735; 84100; 85025; 85025 91; 86850; 86900; 86901; 87641; 93005; 94799; 97530 GO; 97530 GP; 99281; 99285; C1713; C1729; C9113; G0480; J0330; J0360; J0690; J1100; J1815; J2250; J2270; J2405; J2710; J3010; J7030; J7050

== ENCOUNTER → 2017-05-05 | Outpatient (CLI) | payer OTHER, MEDICARE ==
[~2017-05-05] MED LIST changes: +BISACODYL5 MG PO; +LABETALOL HCL100 MG PO; +LO-DOSE ASPIRIN81 M2 PO; +VITAMIN B12 100MCG PO
== END | disposition home or self-care (01) ==
LOC: RAD 05-04 10:00
DX: I62.00 Nontraumatic subdural hemorrhage, unspecified (principal)
CPT/HCPCS: 70450

== ENCOUNTER 2017-06-09 18:56 | Inpatient (IN) | payer OTHER, MEDICARE ==
[~2017-06-09] VITALS: Ht 175.3 cm; Wt 98.6 kg
[~2017-06-09 18:56] MED LIST changes: +CYANOCOBALAM1000 MCG PO; -VITAMIN B12 100MCG PO
[2017-06-09 20:57] LABS: APPEARANCE CLEAR ((CLEAR)); BILIRUBIN NEGATIVE; BLOOD MODERATE; COLOR STRAW ((YELLOW)); GLUCOSE (STRIP) >=500; KETONES NEGATIVE; LEUKOCYTES NEGATIVE; NITRITE NEGATIVE; PROTEIN (STRIP) 30; SPECIFIC GRAVITY 1.023 (1.000-1.030); UROBILINOGEN 0.2 MG/DL (0.2-1.0)
[2017-06-09 21:04] LABS: BASOPHIL (%) 0.9 % (0-1); BASOPHIL COUNT 0.1 K/uL (0-0.1); EOSINOPHIL (%) 6.6 % (0-5); EOSINOPHIL COUNT 0.4 K/uL (0-0.3); HEMATOCRIT 38.7 % (38.0-50.0); HEMOGLOBIN 13.8 G/DL (12.5-16.6); IMMATURE GRANULOCYTE (%) 0.6 % (0.0-0.7); LYMPHOCYTE (%) 18.5 % (15-42); LYMPHOCYTE COUNT 1.2 K/uL (1.0-2.8); MCH 31.7 PG (29.0-34.0); MCHC 35.7 G/DL (30.0-36.0); MCV 88.8 FL (86-99); MONOCYTE (%) 7.6 % (3-12); MONOCYTE COUNT 0.5 K/uL (0-0.8); NEUTROPHIL (%) 65.8 % (45-76); NEUTROPHIL COUNT 4.2 K/uL (1.8-6.4); PLATELET COUNT 174 K/uL (156-360); RBC DIS.WIDTH-CV 12.1 % (11.8-14.6); RBC DIS.WIDTH-SD 39.4 % (39-53); RED BLOOD COUNT 4.36 M/uL (4.00-5.50); WHITE BLOOD COUNT 6.3 K/uL (4.1-10.2)
[2017-06-09 21:05] LABS: BACTERIA NONE SEEN /HPF; EPITHELIAL CELLS RARE /HPF; MUCUS NONE SEEN /LPF; RED BLOOD CELLS 0-5 /HPF (0-5); WHITE BLOOD CELLS 0-5 /HPF (0-5)
[2017-06-09 21:16] LABS: ALBUMIN 3.8 g/dL (3.2-4.8); CHLORIDE 101 mEq/L (99-109); POTASSIUM 3.6 mEq/L (3.7-5.4); SODIUM 135 mEq/L (136-147)
[2017-06-09 21:18] LABS: GLUCOSE 390 mg/dL (70-99); TOTAL PROTEIN 6.2 g/dL (6.4-8.3)
[2017-06-09 21:20] LABS: TOTAL BILIRUBIN 0.8 mg/dL (0.0-1.0)
[2017-06-09 21:22] LABS: ALKALINE PHOSPHATASE 81 IU/L (3-129); CREATININE 1.4 mg/dL (0.6-1.3); GFR ESTIMATE (CALCULATED) 51 mL/min/ (58.99-99999)
[2017-06-09 21:23] LABS: PTT 28.1 SEC (25-37); UREA NITROGEN (BUN) 14 mg/dL (9-23)
[2017-06-09 21:24] LABS: AST (GOT) 11 IU/L (2-34)
[2017-06-09 21:25] LABS: ALT (GPT) 17 IU/L (3-49); CREATINE KINASE 205 IU/L (1-294); LIPASE 18 U/L (1.0-51.0)
[2017-06-09 21:26] LABS: TROP-I INTERPRETATION NEGATIVE; TROPONIN-I < 0.01 ng/mL (0.0-0.30)
[2017-06-09] MEDS ORDERED: ADULT ASPIRIN R81 MG PO (22:28)
[2017-06-09] MEDS ORDERED: FLOMAX0.4 MG PO (22:28)
[2017-06-09] MEDS ORDERED: METOPROLOL SUC100 MG PO (22:28)
[2017-06-09] MEDS ORDERED: CILOSTAZOL100 MG PO (22:28)
[2017-06-09 23:44] VITALS: BP 184/136
[2017-06-10] VITALS (25 sets, daily range): BP systolic 113–191; BP diastolic 64–128
[2017-06-10 05:41] LABS: HEMATOCRIT 41.8 % (38.0-50.0); HEMOGLOBIN 14.3 G/DL (12.5-16.6); MCH 30.4 PG (29.0-34.0); MCHC 34.2 G/DL (30.0-36.0); MCV 88.7 FL (86-99); PLATELET COUNT 187 K/uL (156-360); RBC DIS.WIDTH-CV 12.1 % (11.8-14.6); RBC DIS.WIDTH-SD 39.6 % (39-53); RED BLOOD COUNT 4.71 M/uL (4.00-5.50); WHITE BLOOD COUNT 6.2 K/uL (4.1-10.2)
[2017-06-10 06:17] LABS: CHLORIDE 106 MEQ/L (99-109); CREATININE 1.2 MG/DL (0.6-1.3); GFR ESTIMATE (CALCULATED) > 59 mL/min/ (58.99-99999); POTASSIUM 3.8 MEQ/L (3.7-5.4); SODIUM 139 MEQ/L (136-147); UREA NITROGEN (BUN) 10 mg/dL (9-23)
[2017-06-10 06:21] LABS: GLUCOSE 172 mg/dL (70-99)
[2017-06-10 10:06] LABS: HEMOGLOBIN A1c (GLYCOHEMOGLOB) 9.7 % (Below 5.7)
[2017-06-10 21:39] LABS: HEMATOCRIT 43.2 % (38.0-50.0); HEMOGLOBIN 15.3 G/DL (12.5-16.6); MCH 31.2 PG (29.0-34.0); MCHC 35.4 G/DL (30.0-36.0); MCV 88.2 FL (86-99); PLATELET COUNT 195 K/uL (156-360); RBC DIS.WIDTH-CV 12.1 % (11.8-14.6); RBC DIS.WIDTH-SD 39.1 % (39-53); WHITE BLOOD COUNT 8.2 K/uL (4.1-10.2)
[2017-06-10 21:47] LABS: PTT 28.7 SEC (25-37)
[2017-06-10 22:08] LABS: CHLORIDE 102 MEQ/L (99-109); CREATININE 1.3 MG/DL (0.6-1.3); GFR ESTIMATE (CALCULATED) 56 mL/min/ (58.99-99999); GLUCOSE 243 mg/dL (70-99); POTASSIUM 3.7 MEQ/L (3.7-5.4); SODIUM 134 MEQ/L (136-147); UREA NITROGEN (BUN) 13 mg/dL (9-23)
[2017-06-11] VITALS (28 sets, daily range): BP systolic 69–187; BP diastolic 47–109
[2017-06-11 01:28] LABS: BICARBONATE 23.7 mEq/L (22-26); CARBOXY HGB 1.6 % (0-5); COMMENTS - BLOOD GASES C+A+; DEVICE VENTILATOR; METHEMOGLOBIN 1.1 % (0-1.5); PCO2 43 mm Hg (35-45); PO2 86 mm Hg (80-100); SITE LR; pH 7.35 (7.35-7.45)
[2017-06-11 01:29] LABS: FI02 30 %; MODE SPONT; PEEP 5 CM/H20; PRES. SUPPORT 5 CM/H2O; TOTAL RESP RATE 16 resp/min
[2017-06-11 08:25] LABS: BASOPHIL (%) 0.7 % (0-1); BASOPHIL COUNT 0.1 K/uL (0-0.1); EOSINOPHIL (%) 2.4 % (0-5); EOSINOPHIL COUNT 0.2 K/uL (0-0.3); HEMATOCRIT 40.2 % (38.0-50.0); HEMOGLOBIN 13.8 G/DL (12.5-16.6); IMMATURE GRANULOCYTE (%) 0.5 % (0.0-0.7); LYMPHOCYTE (%) 13.2 % (15-42); LYMPHOCYTE COUNT 1.1 K/uL (1.0-2.8); MCH 30.7 PG (29.0-34.0); MCHC 34.3 G/DL (30.0-36.0); MCV 89.5 FL (86-99); MONOCYTE (%) 6.7 % (3-12); MONOCYTE COUNT 0.6 K/uL (0-0.8); NEUTROPHIL (%) 76.5 % (45-76); NEUTROPHIL COUNT 6.6 K/uL (1.8-6.4); PLATELET COUNT 177 K/uL (156-360); RBC DIS.WIDTH-CV 12.4 % (11.8-14.6); RBC DIS.WIDTH-SD 40.6 % (39-53); RED BLOOD COUNT 4.49 M/uL (4.00-5.50); WHITE BLOOD COUNT 8.6 K/uL (4.1-10.2)
[2017-06-11 08:47] LABS: CHLORIDE 105 MEQ/L (99-109); CREATININE 1.3 MG/DL (0.6-1.3); GFR ESTIMATE (CALCULATED) 56 mL/min/ (58.99-99999); GLUCOSE 233 mg/dL (70-99); SODIUM 137 MEQ/L (136-147); UREA NITROGEN (BUN) 12 mg/dL (9-23)
[2017-06-12] VITALS (13 sets, daily range): BP systolic 112–181; BP diastolic 56–97
[2017-06-13 00:02] VITALS: BP 130/78
[2017-06-13 04:14] VITALS: BP 136/80
[2017-06-13 07:21] LABS: CHLORIDE 102 MEQ/L (99-109); CREATININE 1.5 MG/DL (0.6-1.3); GFR ESTIMATE (CALCULATED) 47 mL/min/ (58.99-99999); GLUCOSE 239 mg/dL (70-99); POTASSIUM 3.6 MEQ/L (3.7-5.4); SODIUM 138 MEQ/L (136-147)
[2017-06-13 07:22] LABS: UREA NITROGEN (BUN) 27 mg/dL (9-23)
[2017-06-13 07:50] VITALS: BP 112/63
[2017-06-13 17:24] VITALS: BP 138/84
[2017-06-13 20:00] VITALS: BP 125/78
[2017-06-13 23:52] VITALS: BP 141/68
[2017-06-14 04:00] VITALS: BP 122/74
[2017-06-14 06:26] LABS: BASOPHIL COUNT 0.1 K/uL (0-0.1); EOSINOPHIL COUNT 0.6 K/uL (0-0.3); HEMATOCRIT 42.4 % (38.0-50.0); HEMOGLOBIN 14.3 G/DL (12.5-16.6); IMMATURE GRANULOCYTE (%) 0.6 % (0.0-0.7); LYMPHOCYTE (%) 21.4 % (15-42); LYMPHOCYTE COUNT 1.7 K/uL (1.0-2.8); MCH 30.6 PG (29.0-34.0); MCHC 33.7 G/DL (30.0-36.0); MCV 90.6 FL (86-99); MONOCYTE (%) 7.8 % (3-12); MONOCYTE COUNT 0.6 K/uL (0-0.8); NEUTROPHIL (%) 62.2 % (45-76); NEUTROPHIL COUNT 4.9 K/uL (1.8-6.4); PLATELET COUNT 208 K/uL (156-360); RBC DIS.WIDTH-CV 12.3 % (11.8-14.6); RBC DIS.WIDTH-SD 40.6 % (39-53); RED BLOOD COUNT 4.68 M/uL (4.00-5.50); WHITE BLOOD COUNT 7.8 K/uL (4.1-10.2)
[2017-06-14 06:55] LABS: CHLORIDE 104 MEQ/L (99-109); CREATININE 1.4 MG/DL (0.6-1.3); GFR ESTIMATE (CALCULATED) 51 mL/min/ (58.99-99999); GLUCOSE 166 mg/dL (70-99); POTASSIUM 3.4 MEQ/L (3.7-5.4); SODIUM 139 MEQ/L (136-147); UREA NITROGEN (BUN) 27 mg/dL (9-23)
[2017-06-14 07:38] VITALS: BP 127/70
[2017-06-14] MEDS ORDERED: LABETALOL HCL100 MG PO (09:57)
[2017-06-14] MEDS ORDERED: K-DUR20 MEQ PO (09:58)
[2017-06-14] MEDS ORDERED: LEVETIRACETAM500 MG PO (09:58)
[2017-06-14] MEDS ORDERED: CYANOCOBAL1000 MCG/2 SC (09:59)
[2017-06-14] MEDS ORDERED: OXYCODONE HCL5 MG PO (09:59)
== END 2017-06-14 16:37 | DRG 26 ==
LOC: EME 18:56 → TRA 18:56 → 3EAST 22:15 → 4WEST 22:15 → EDOF 22:15 → ENRESERV 22:18 → 4WEST 23:39 → ENRESERV 06-12 08:08 → 3EAST 06-12 10:26
PROVIDERS: Emergency Medicine; Hospitalist; Internal Medicine; Internal Medicine Critical Care Medicine; Obstetrics & Gynecology; Specialist; Surgery
PROC: 00C40ZZ Extirpation of Matter from Intracranial Subdural Space, Open Approach (ICD-10-PCS; principal; 2017-06-11)
DX: S06.5X9A Traumatic subdural hemorrhage with loss of consciousness of unspecified duration, initial encounter (principal); F32.9 Major depressive disorder, single episode, unspecified; J44.9 Chronic obstructive pulmonary disease, unspecified; I10 Essential (primary) hypertension; I73.9 Peripheral vascular disease, unspecified; I25.10 Atherosclerotic heart disease of native coronary artery without angina pectoris; E11.51 Type 2 diabetes mellitus with diabetic peripheral angiopathy without gangrene; G47.30 Sleep apnea, unspecified; M54.2 Cervicalgia; N17.9 Acute kidney failure, unspecified; E78.5 Hyperlipidemia, unspecified; E11.65 Type 2 diabetes mellitus with hyperglycemia; I16.1 Hypertensive emergency; R26.9 Unspecified abnormalities of gait and mobility; E53.8 Deficiency of other specified B group vitamins; Z85.038 Personal history of other malignant neoplasm of large intestine; Z86.73 Personal history of transient ischemic attack (TIA), and cerebral infarction without residual deficits; Z90.49 Acquired absence of other specified parts of digestive tract; Z95.1 Presence of aortocoronary bypass graft; Z79.4 Long term (current) use of insulin; W18.30XA Fall on same level, unspecified, initial encounter; Z91.81 History of falling; Y93.9 Activity, unspecified; Y92.9 Unspecified place or not applicable
CPT/HCPCS: 36600; 70450; 71260; 72125; 74018; 74177; 80048; 80048 91; 80053; 81003; 82550; 82803; 82948; 83036; 83605; 83690; 84484; 85025; 85027; 85610; 85730; 86850; 86900; 86901; 87040; 87070; 87205; 87502; 87641; 92523 GN; 94002; 94010; 94760; 94799; 97530 GO; 97530 GP; 99202; 99281; 99285; C1713; C1729; C1753; G0515 GO; J0330; J0360; J0690; J1815; J1953; J2370; J2704; J3010; J3420; J3480; J7030; J7040; J7050; S0028

== ENCOUNTER 2017-06-21 08:22 | Inpatient (IN) | payer OTHER, MEDICARE ==
[~2017-06-21] VITALS: Ht 175.3 cm; Wt 96.8 kg
[2017-06-21] VITALS (8 sets, daily range): BP systolic 139–170; BP diastolic 75–112
[~2017-06-21 08:22] MED LIST changes: +ADULT ASPIRIN R81 MG PO; +CYANOCOBAL1000 MCG/2 SC; +FLOMAX0.4 MG PO; +K-DUR20 MEQ PO; +LEVETIRACETAM500 MG PO; +OXYCODONE HCL5 MG PO
[2017-06-21 09:29] LABS: HEMATOCRIT 39.6 % (38.0-50.0); MCH 31.5 PG (29.0-34.0); MCHC 35.4 G/DL (30.0-36.0); MCV 89.2 FL (86-99); PLATELET COUNT 203 K/uL (156-360); RBC DIS.WIDTH-CV 12.1 % (11.8-14.6); RBC DIS.WIDTH-SD 39.5 % (39-53); RED BLOOD COUNT 4.44 M/uL (4.00-5.50); WHITE BLOOD COUNT 9.6 K/uL (4.1-10.2)
[2017-06-21 09:40] LABS: INTER. NORMALIZED RATIO 1.1
[2017-06-21 09:41] LABS: ALBUMIN 3.7 g/dL (3.2-4.8); CHLORIDE 103 mEq/L (99-109); SODIUM 142 mEq/L (136-147)
[2017-06-21 09:43] LABS: PTT 29.1 SEC (25-37)
[2017-06-21 09:43] LABS: GLUCOSE 198 mg/dL (70-99)
[2017-06-21 09:44] LABS: TOTAL PROTEIN 6.1 g/dL (6.4-8.3)
[2017-06-21 09:45] LABS: TOTAL BILIRUBIN 1.1 mg/dL (0.0-1.0)
[2017-06-21 09:47] LABS: ALKALINE PHOSPHATASE 93 IU/L (3-129); CREATININE 1.3 mg/dL (0.6-1.3); GFR ESTIMATE (CALCULATED) 56 mL/min/ (58.99-99999)
[2017-06-21 09:48] LABS: UREA NITROGEN (BUN) 15 mg/dL (9-23)
[2017-06-21 09:49] LABS: AST (GOT) 13 IU/L (2-34)
[2017-06-21 09:50] LABS: ALT (GPT) 16 IU/L (3-49); CREATINE KINASE 154 IU/L (1-294)
[2017-06-21 09:53] LABS: POTASSIUM 4.3 mEq/L (3.7-5.4)
[2017-06-21 10:16] LABS: TROP-I INTERPRETATION NEGATIVE; TROPONIN-I < 0.01 ng/mL (0.0-0.30)
[2017-06-21] MEDS ORDERED: RANITIDINE HCL300 MG PO (10:46)
[2017-06-21] MEDS ORDERED: VITAMIN D32000 UNI1 PO (11:04)
[2017-06-21] MEDS ORDERED: CYANOCOBAL1000 MCG/2 IM (11:07)
[2017-06-21] MEDS ORDERED: BASAGLAR K100 UNIT/1 SC (11:07)
[2017-06-21] MEDS ORDERED: KLOR-CON M2020 MEQ PO (11:08)
[2017-06-22] VITALS (15 sets, daily range): BP systolic 114–177; BP diastolic 69–96
[2017-06-22 04:17] LABS: APPEARANCE CLEAR ((CLEAR)); BILIRUBIN NEGATIVE; BLOOD SMALL; COLOR YELLOW ((YELLOW)); GLUCOSE (STRIP) >=500; KETONES NEGATIVE; LEUKOCYTES NEGATIVE; NITRITE NEGATIVE; PROTEIN (STRIP) 30; UROBILINOGEN 0.2 MG/DL (0.2-1.0)
[2017-06-22 04:20] LABS: BACTERIA NONE SEEN /HPF; EPITHELIAL CELLS NONE SEEN /HPF; MUCUS TRACE /LPF; RED BLOOD CELLS 0-5 /HPF (0-5); UCUL ADDED? NO; WHITE BLOOD CELLS 0-5 /HPF (0-5)
[2017-06-22 05:36] LABS: ALBUMIN 3.3 g/dL (3.2-4.8); CHLORIDE 103 mEq/L (99-109); POTASSIUM 4.1 mEq/L (3.7-5.4); SODIUM 136 mEq/L (136-147)
[2017-06-22 05:38] LABS: GLUCOSE 213 mg/dL (70-99)
[2017-06-22 05:39] LABS: TOTAL PROTEIN 5.2 g/dL (6.4-8.3)
[2017-06-22 05:40] LABS: TOTAL BILIRUBIN 1.3 mg/dL (0.0-1.0)
[2017-06-22 05:41] LABS: HEMATOCRIT 38.1 % (38.0-50.0); HEMOGLOBIN 13.2 G/DL (12.5-16.6); MCH 31.2 PG (29.0-34.0); MCHC 34.6 G/DL (30.0-36.0); MCV 90.1 FL (86-99); PLATELET COUNT 192 K/uL (156-360); RBC DIS.WIDTH-SD 39.6 % (39-53); RED BLOOD COUNT 4.23 M/uL (4.00-5.50)
[2017-06-22 05:42] LABS: ALKALINE PHOSPHATASE 91 IU/L (3-129); CREATININE 1.2 mg/dL (0.6-1.3); GFR ESTIMATE (CALCULATED) > 59 mL/min/ (58.99-99999)
[2017-06-22 05:43] LABS: UREA NITROGEN (BUN) 14 mg/dL (9-23)
[2017-06-22 05:44] LABS: AST (GOT) 10 IU/L (2-34)
[2017-06-22 05:45] LABS: ALT (GPT) 14 IU/L (3-49)
[2017-06-23] VITALS (7 sets, daily range): BP systolic 115–150; BP diastolic 63–76
[2017-06-24 04:03] VITALS: BP 128/61
[2017-06-24 06:53] LABS: BASOPHIL COUNT 0.1 K/uL (0-0.1); EOSINOPHIL (%) 7.6 % (0-5); EOSINOPHIL COUNT 0.5 K/uL (0-0.3); HEMATOCRIT 38.1 % (38.0-50.0); HEMOGLOBIN 12.8 G/DL (12.5-16.6); IMMATURE GRANULOCYTE (%) 0.6 % (0.0-0.7); LYMPHOCYTE (%) 27.8 % (15-42); LYMPHOCYTE COUNT 1.8 K/uL (1.0-2.8); MCH 30.5 PG (29.0-34.0); MCHC 33.6 G/DL (30.0-36.0); MCV 90.7 FL (86-99); MONOCYTE (%) 9.2 % (3-12); MONOCYTE COUNT 0.6 K/uL (0-0.8); NEUTROPHIL (%) 53.8 % (45-76); NEUTROPHIL COUNT 3.4 K/uL (1.8-6.4); PLATELET COUNT 187 K/uL (156-360); RBC DIS.WIDTH-CV 12.1 % (11.8-14.6); RBC DIS.WIDTH-SD 39.9 % (39-53); WHITE BLOOD COUNT 6.3 K/uL (4.1-10.2)
[2017-06-24 07:15] LABS: CHLORIDE 103 MEQ/L (99-109); CREATININE 1.5 MG/DL (0.6-1.3); GFR ESTIMATE (CALCULATED) 47 mL/min/ (58.99-99999); GLUCOSE 168 mg/dL (70-99); POTASSIUM 4.6 MEQ/L (3.7-5.4); SODIUM 139 MEQ/L (136-147); UREA NITROGEN (BUN) 18 mg/dL (9-23)
[2017-06-24 08:01] VITALS: BP 161/75
[2017-06-24 15:34] VITALS: BP 150/76
[2017-06-24 19:42] VITALS: BP 166/76
[2017-06-24 23:18] VITALS: BP 114/62
[2017-06-25 04:01] VITALS: BP 115/60
[2017-06-25 06:19] LABS: BASOPHIL (%) 0.8 % (0-1); BASOPHIL COUNT 0.1 K/uL (0-0.1); EOSINOPHIL COUNT 0.4 K/uL (0-0.3); IMMATURE GRANULOCYTE (%) 0.4 % (0.0-0.7); LYMPHOCYTE (%) 20.3 % (15-42); LYMPHOCYTE COUNT 1.5 K/uL (1.0-2.8); MCHC 34.1 G/DL (30.0-36.0); MCV 90.9 FL (86-99); MONOCYTE COUNT 0.5 K/uL (0-0.8); NEUTROPHIL (%) 65.5 % (45-76); NEUTROPHIL COUNT 4.7 K/uL (1.8-6.4); PLATELET COUNT 212 K/uL (156-360); RBC DIS.WIDTH-CV 11.9 % (11.8-14.6); RBC DIS.WIDTH-SD 39.6 % (39-53); RED BLOOD COUNT 4.51 M/uL (4.00-5.50); WHITE BLOOD COUNT 7.2 K/uL (4.1-10.2)
[2017-06-25 06:51] LABS: CHLORIDE 101 MEQ/L (99-109); CREATININE 1.5 MG/DL (0.6-1.3); GFR ESTIMATE (CALCULATED) 47 mL/min/ (58.99-99999); GLUCOSE 170 mg/dL (70-99); POTASSIUM 5.3 MEQ/L (3.7-5.4); SODIUM 137 MEQ/L (136-147); UREA NITROGEN (BUN) 18 mg/dL (9-23)
[2017-06-25 08:06] VITALS: BP 122/71
[2017-06-25] MEDS ORDERED: LEVEMIR100 UNIT/2 SC (12:02)
[2017-06-25] MEDS ORDERED: OXYCODONE HCL5 MG PO (12:06)
== END 2017-06-25 15:17 | DRG 87 ==
LOC: EME 08:22 → 3EAST 12:34 → 4WEST 12:34 → EDOF 12:34 → CANRESERV 12:35 → ENRESERV 12:35 → 4WEST 15:55 → ENRESERV 06-22 16:35 → 4EAST 06-22 18:40 → ENRESERV 06-23 09:12 → 3EAST 06-23 18:18
PROVIDERS: Hospitalist; Internal Medicine; Internal Medicine Critical Care Medicine; Obstetrics & Gynecology; Physician Assistant Medical
PROC: 0HQ0XZZ Repair Scalp Skin, External Approach (ICD-10-PCS; principal; 2017-06-21)
DX: S06.5X0A Traumatic subdural hemorrhage without loss of consciousness, initial encounter (principal); S06.5X0D Traumatic subdural hemorrhage without loss of consciousness, subsequent encounter; E78.5 Hyperlipidemia, unspecified; I25.10 Atherosclerotic heart disease of native coronary artery without angina pectoris; K21.9 Gastro-esophageal reflux disease without esophagitis; I12.9 Hypertensive chronic kidney disease with stage 1 through stage 4 chronic kidney disease, or unspecified chronic kidney disease; N18.9 Chronic kidney disease, unspecified; E11.22 Type 2 diabetes mellitus with diabetic chronic kidney disease; R26.9 Unspecified abnormalities of gait and mobility; R29.6 Repeated falls; N18.3 Chronic kidney disease, stage 3 (moderate); I73.9 Peripheral vascular disease, unspecified; S01.01XA Laceration without foreign body of scalp, initial encounter; E11.42 Type 2 diabetes mellitus with diabetic polyneuropathy; W18.30XA Fall on same level, unspecified, initial encounter; Z66 Do not resuscitate; Z86.73 Personal history of transient ischemic attack (TIA), and cerebral infarction without residual deficits; Z79.4 Long term (current) use of insulin; Z85.038 Personal history of other malignant neoplasm of large intestine; Z91.81 History of falling; Y93.9 Activity, unspecified; Y92.9 Unspecified place or not applicable; Z90.49 Acquired absence of other specified parts of digestive tract; Z87.891 Personal history of nicotine dependence; Z98.890 Other specified postprocedural states; Z95.1 Presence of aortocoronary bypass graft
CPT/HCPCS: 70450; 71045; 72125; 80048; 80053; 81003; 82550; 82948; 84484; 85025; 85027; 85610; 85730; 87641; 93005; 97530 GP; 99281; 99285; J1815; J3010; J7030